=== PATIENT | male | born 1950 | race Caucasian/White ===

== ENCOUNTER 2017-09-26 09:31 | Inpatient (IN) | payer MEDICAID, OTHER ==
[~2017-09-26] VITALS: Ht 175.3 cm; Wt 72.1 kg
[~2017-09-26 09:31] MED LIST: *INS REG3 SQ; AMLO10TA2 PO; ASPI-1169 PO; BRIM5DRO EACHEYE; CARV3.122 PO; DOCU100C36 PO; DORZ10DR11 OP; FAMO20TA8 PO; NPH,100V2 SQ; OMEG500C PO; PRAV40TA3 PO
[2017-09-26 10:41] LABS: BASOPHILS % (AUTO) 0.3 % (0.0-2.0); EOSINOPHILS % (AUTO) 0.2 % (0.0-6.0); HEMATOCRIT 32 % (39-51); HEMOGLOBIN 10.8 g/dL (13.5-17.5); LYMPHOCYTES # (AUTO) 1.1 /CMM (0.8-4.8); LYMPHOCYTES % (AUTO) 8.2 % (20.0-44.0); MEAN CORPUSCULAR HEMOGLOBIN 33 PG (26.0-33.0); MEAN CORPUSCULAR HGB CONC 34 g/dl (31.0-36.0); MEAN CORPUSCULAR VOLUME 96 fL (80-96); MONOCYTES % (AUTO) 14.2 % (2.0-12.0); NEUTROPHILS # (AUTO) 10.7 /CMM (1.8-8.9); NEUTROPHILS % (AUTO) 77.1 % (43.0-81.0); PLATELET COUNT (AUTO) 239 /CMM (150-450); RDW COEFFICIENT OF VARIATION 12.9 (11.5-15.0); RED BLOOD CELL COUNT(AUTO) 3.32 MIL/uL (4.5-6.0); WHITE BLOOD COUNT (AUTO) 13.8 K/uL (4.3-11.0)
[2017-09-26 10:55] LABS: INR 1.12 (0.85-1.15)
[2017-09-26 11:00] LABS: TROPONIN I 0.085 ng/mL (0.00-0.056)
[2017-09-26 11:08] LABS: D-DIMER 0.67 mg/L(FEU (0.17-0.50)
[2017-09-26 11:11] LABS: BILIRUBIN,DIRECT 0.2 mg/dL (0.0-0.2); BILIRUBIN,TOTAL 0.7 mg/dL (0.2-1.0); CALCIUM, SERUM 8.7 mg/dL (8.5-10.1); CREATININE 2.6 mg/dL (0.6-1.3); POTASSIUM 3.8 mmol/L (3.5-5.1); TOTAL PROTEIN, SERUM 7.9 g/dL (6.4-8.2)
[2017-09-26] MEDS ORDERED: ASPIRIN 325 MG TABLET PO ONE (12:00)
[2017-09-26] MEDS ORDERED: MORPHINE SULFATE INJ 2 MG/ML DISP.SYRIN IV PRN ×2 (12:30→15:30)
[2017-09-26] MEDS ORDERED: FUROSEMIDE 40 MG/4 ML VIAL IV SCH (12:30)
[2017-09-26 15:06] VITALS: BP 146/71
[2017-09-26] MEDS ORDERED: ATOR40TA PO (15:26)
[2017-09-26] MEDS ORDERED: ALLO100T PO (15:26)
[2017-09-26] MEDS ORDERED: HYDR-4077 PO (15:26)
[2017-09-26] MEDS ORDERED: LOSA50TA21 PO (15:26)
[2017-09-26] MEDS ORDERED: MAGNESIUM HYDROXIDE 30 ML UDC PO PRN (15:30)
[2017-09-26] MEDS ORDERED: HYDROCODONE/APAP 5/325MG 1 EACH TABLET PO PRN (15:30)
[2017-09-26] MEDS ORDERED: DEXTROSE 50%-WATER 50 ML DISP.SYRIN IV PRN (15:30)
[2017-09-26] MEDS ORDERED: ACETAMINOPHEN 325 MG TABLET PO PRN (15:30)
[2017-09-26] MEDS ORDERED: MAG HYDROX/AL HYDROX/SIMETH 30 ML UDC PO PRN (15:30)
[2017-09-26] MEDS ORDERED: Z GUARD REMEDY 2 OZ OINT TP PRN (15:30)
[2017-09-26] MEDS ORDERED: ONDANSETRON HCL/PF 4 MG/2 ML VIAL IVP PRN (15:30)
[2017-09-26] MEDS: hydrALAZINE HCL 50 MG TABLET PO SCH ×2 (16:00→21:00)
[2017-09-26] MEDS: BLOOD SUGAR DIAGNOSTIC 1 EACH STRIP IN SCH ×2 (17:11→21:15)
[2017-09-26] MEDS ORDERED: FUROSEMIDE 20 MG/2 ML VIAL IV ONE (18:00)
[2017-09-26] MEDS: BRIMONIDINE TARTRATE OPHT SOLN 5 ML BOTTLE EACHEYE SCH (18:23)
[2017-09-26 18:27] VITALS: BP 154/64
[2017-09-26 18:37] VITALS: BP 146/71
[2017-09-26 20:00] VITALS: BP 129/65
[2017-09-26] MEDS: ATORVASTATIN 40 MG TABLET PO SCH (21:15)
[2017-09-26] MEDS: CARVEDILOL 3.125 MG TABLET PO SCH (21:15)
[2017-09-26] MEDS: INSULIN GLARGINE, 100 UNIT/ML CARTRIDGE SQ SCH (21:17)
[2017-09-26] MEDS: INSULIN REGULAR, HUMAN 100 UNIT/ML 3 ML VIAL SQ PRN (21:17)
[2017-09-26] MEDS: ZOLPIDEM TARTRATE 5 MG TABLET PO PRN (23:54)
[2017-09-27] VITALS: BP 117/56
[2017-09-27 04:00] VITALS: BP 125/61
[2017-09-27] MEDS: BLOOD SUGAR DIAGNOSTIC 1 EACH STRIP IN SCH ×4 (06:53→21:55)
[2017-09-27 06:55] LABS: BASOPHILS % (AUTO) 0.2 % (0.0-2.0); EOSINOPHILS % (AUTO) 1.2 % (0.0-6.0); HEMATOCRIT 33 % (39-51); HEMOGLOBIN 11.2 g/dL (13.5-17.5); LYMPHOCYTES # (AUTO) 1.1 /CMM (0.8-4.8); MEAN CORPUSCULAR HEMOGLOBIN 34 PG (26.0-33.0); MEAN CORPUSCULAR HGB CONC 34 g/dl (31.0-36.0); MEAN CORPUSCULAR VOLUME 98 fL (80-96); MONOCYTES % (AUTO) 14.8 % (2.0-12.0); NEUTROPHILS # (AUTO) 10.1 /CMM (1.8-8.9); NEUTROPHILS % (AUTO) 75.8 % (43.0-81.0); PLATELET COUNT (AUTO) 222 /CMM (150-450); RDW COEFFICIENT OF VARIATION 13.6 (11.5-15.0); WHITE BLOOD COUNT (AUTO) 13.3 K/uL (4.3-11.0)
[2017-09-27 07:03] LABS: CREATININE 2.7 mg/dL (0.6-1.3); MAGNESIUM 2.1 mg/dL (1.8-2.4); PHOSPHORUS 4.3 mg/dL (2.5-4.9); POTASSIUM 3.7 mmol/L (3.5-5.1)
[2017-09-27 08:00] VITALS: BP_SYST 113; BP_SYST 131; BP_DIAS 62
[2017-09-27] MEDS: ALLOPURINOL 100 MG TABLET PO SCH (08:26)
[2017-09-27] MEDS: ASPIRIN 325 MG TABLET PO SCH (08:26)
[2017-09-27] MEDS: PANTOPRAZOLE 40 MG VIAL IV SCH (08:26)
[2017-09-27] MEDS: AMLODIPINE BESYLATE 10 MG TABLET PO SCH (08:27)
[2017-09-27] MEDS: BRIMONIDINE TARTRATE OPHT SOLN 5 ML BOTTLE EACHEYE SCH ×2 (08:27→17:06)
[2017-09-27] MEDS: hydrALAZINE HCL 50 MG TABLET PO SCH ×3 (09:00→21:00)
[2017-09-27] MEDS: CARVEDILOL 3.125 MG TABLET PO SCH ×2 (09:00→21:00)
[2017-09-27] MEDS: LOSARTAN POTASSIUM 50 MG TABLET PO SCH (09:27)
[2017-09-27] MEDS: INSULIN REGULAR, HUMAN 100 UNIT/ML 3 ML VIAL SQ PRN ×3 (11:44→21:57)
[2017-09-27 12:00] VITALS: BP 124/66
[2017-09-27 16:00] VITALS: BP 124/60
[2017-09-27 17:39] LABS: APPEARANCE,URINE SL CLOUDY (CLEAR); BILIRUBIN,URINE NEGATIVE (NEGATIVE); BLOOD, URINE NEGATIVE Ery/uL (NEGATIVE); COLOR,URINE YELLOW (YELLOW); KETONES,URINE NEGATIVE (NEGATIVE); LEUKOCYTE ESTERASE ,URINE NEGATIVE (NEGATIVE); NITRITE, URINE NEGATIVE (NEGATIVE); PH,URINE 5.5 (5.0-8.0); PROTEIN,URINE 2+ mg/dl (NEGATIVE); UGLUCOSE NEGATIVE (NEGATIVE); UROBILINOGEN,URINE 0.2 EU/dL (0.2)
[2017-09-27 18:02] LABS: BACTERIA,URINE Moderate /HPF (None Seen); HYALINE CASTS, URINE Few /LPF (None Seen); RBC,URINE 0-2 /HPF (0-2); SQUAMOUS EPITHELIAL CELL,UR Few /HPF (None Seen); WBC,URINE 0-2 /HPF (0-3)
[2017-09-27 18:03] LABS: URINE AMORPHOUS URATE Moderate /HPF (None Seen)
[2017-09-27 18:20] LABS: CREATININE, URINE 141.7 MG/DL (30.0-125.0); URINE TOTAL PROTEIN 145.1 mg/dL (0-11.9)
[2017-09-27 18:31] LABS: EOSINOPHIL,URINE None Seen
[2017-09-27 20:00] VITALS: BP 127/58
[2017-09-27] MEDS: ATORVASTATIN 40 MG TABLET PO SCH (21:53)
[2017-09-27] MEDS: INSULIN GLARGINE, 100 UNIT/ML CARTRIDGE SQ SCH (21:56)
[2017-09-27] MEDS: ZOLPIDEM TARTRATE 5 MG TABLET PO PRN (22:17)
[2017-09-28] VITALS: BP 133/59
[2017-09-28 04:33] VITALS: BP 140/61
[2017-09-28 06:20] LABS: BASOPHILS % (AUTO) 0.3 % (0.0-2.0); EOSINOPHILS % (AUTO) 3.6 % (0.0-6.0); HEMATOCRIT 33 % (39-51); LYMPHOCYTES # (AUTO) 1.4 /CMM (0.8-4.8); LYMPHOCYTES % (AUTO) 12.7 % (20.0-44.0); MEAN CORPUSCULAR HEMOGLOBIN 33 PG (26.0-33.0); MEAN CORPUSCULAR HGB CONC 33 g/dl (31.0-36.0); MEAN CORPUSCULAR VOLUME 99 fL (80-96); MONOCYTES # (AUTO) 1.3 /CMM (0.1-1.30); MONOCYTES % (AUTO) 11.4 % (2.0-12.0); PLATELET COUNT (AUTO) 239 /CMM (150-450); RDW COEFFICIENT OF VARIATION 13.6 (11.5-15.0); RED BLOOD CELL COUNT(AUTO) 3.33 MIL/uL (4.5-6.0); WHITE BLOOD COUNT (AUTO) 11.1 K/uL (4.3-11.0)
[2017-09-28 06:23] LABS: ALBUMIN 2.6 g/dL (3.4-5.0); BILIRUBIN,TOTAL 0.5 mg/dL (0.2-1.0); CALCIUM, SERUM 8.4 mg/dL (8.5-10.1); MAGNESIUM 2.2 mg/dL (1.8-2.4); PHOSPHORUS 4.9 mg/dL (2.5-4.9); TOTAL PROTEIN, SERUM 7.5 g/dL (6.4-8.2)
[2017-09-28] MEDS: BLOOD SUGAR DIAGNOSTIC 1 EACH STRIP IN SCH ×3 (06:30→17:30)
[2017-09-28 08:00] VITALS: BP 142/72
[2017-09-28] MEDS: ASPIRIN 325 MG TABLET PO SCH (08:21)
[2017-09-28] MEDS: ALLOPURINOL 100 MG TABLET PO SCH (08:21)
[2017-09-28] MEDS: PANTOPRAZOLE 40 MG VIAL IV SCH (08:21)
[2017-09-28] MEDS: LOSARTAN POTASSIUM 50 MG TABLET PO SCH (08:23)
[2017-09-28] MEDS: hydrALAZINE HCL 50 MG TABLET PO SCH ×2 (08:24→13:00)
[2017-09-28] MEDS: CARVEDILOL 3.125 MG TABLET PO SCH (08:24)
[2017-09-28] MEDS: AMLODIPINE BESYLATE 10 MG TABLET PO SCH (09:00)
[2017-09-28] MEDS: BRIMONIDINE TARTRATE OPHT SOLN 5 ML BOTTLE EACHEYE SCH ×2 (09:02→17:00)
[2017-09-28] MEDS ORDERED: FUROSEMIDE 20 MG TABLET PO SCH (11:00)
[2017-09-28 12:00] VITALS: BP 133/59
[2017-09-28] MEDS: INSULIN REGULAR, HUMAN 100 UNIT/ML 3 ML VIAL SQ PRN (12:28)
[2017-09-28 16:00] VITALS: BP 131/65
[2017-09-28 20:00] VITALS: BP 138/70
[2017-09-30 08:07] LABS: *SPE A/G RATIO 0.7 (0.7-1.7); *SPE ALBUMIN 2.8 g/dL (2.9-4.4); *SPE ALPHA-1-GLOBULIN 0.4 g/dL (0.0-0.4); *SPE ALPHA-2-GLOBULIN 0.9 g/dL (0.4-1.0); *SPE BETA GLOBULIN 0.7 g/dL (0.7-1.3); *SPE GLOBULIN, TOTAL 3.8 g/dL (2.2-3.9); *SPE M-SPIKE Not Observed g/dL (Not Observed); *SPEGAMMA GLOBULIN 1.7 g/dL (0.4-1.8)
[2017-10-01 12:17] LABS: CALCITRIOL VIT D,1, 25 DIHYDRO 25.4 pg/mL (19.9-79.3)
[2017-10-04 05:16] LABS: PTH, INTACT 78 pg/mL (15-65)
== END 2017-09-28 20:30 | disposition home or self-care (01) | DRG 194 ==
LOC: ER 09:35 → TELE 11:49
PROVIDERS: ADMIT Hospitalist; ATTEND Hospitalist
DX: I13.0 Hypertensive heart and chronic kidney disease with heart failure and stage 1 through stage 4 chronic kidney disease, or unspecified chronic kidney disease (principal); I21.4 Non-ST elevation (NSTEMI) myocardial infarction; N17.0 Acute kidney failure with tubular necrosis; N18.9 Chronic kidney disease, unspecified; D63.8 Anemia in other chronic diseases classified elsewhere; E44.1 Mild protein-calorie malnutrition; E78.5 Hyperlipidemia, unspecified; E88.09 Other disorders of plasma-protein metabolism, not elsewhere classified; I25.10 Atherosclerotic heart disease of native coronary artery without angina pectoris; E11.22 Type 2 diabetes mellitus with diabetic chronic kidney disease; D72.829 Elevated white blood cell count, unspecified; E11.65 Type 2 diabetes mellitus with hyperglycemia; E11.51 Type 2 diabetes mellitus with diabetic peripheral angiopathy without gangrene; Z86.73 Personal history of transient ischemic attack (TIA), and cerebral infarction without residual deficits; Z95.1 Presence of aortocoronary bypass graft; H91.93 Unspecified hearing loss, bilateral; Z89.511 Acquired absence of right leg below knee; H54.61 Unqualified visual loss, right eye, normal vision left eye; Z68.23 Body mass index [BMI] 23.0-23.9, adult; I42.9 Cardiomyopathy, unspecified; H40.9 Unspecified glaucoma; Z79.4 Long term (current) use of insulin; E11.36 Type 2 diabetes mellitus with diabetic cataract; I50.43 Acute on chronic combined systolic (congestive) and diastolic (congestive) heart failure
CPT/HCPCS: 36415; 71045-TC; 78582; 80048-TC; 80053-TC; 80061-TC; 80076-TC; 81000-TC; 82306; 82550-TC; 82570-TC; 82652; 82962-TC; 83735-TC; 83880; 83970; 84100-TC; 84155; 84155-TC; 84165; 84300-TC; 84484-TC; 85025-TC; 85378-TC; 85730-TC; 87081-TC; 87086-TC; 93307-TC; A4606; A6402; A9540; A9567; C9113; J1815; J1940; Z7610

== ENCOUNTER 2019-01-16 10:46 | Emergency (ER) | payer MEDICAID, OTHER ==
[~2019-01-16] VITALS: Ht 167.6 cm; Wt 71.7 kg
[~2019-01-16 10:46] MED LIST changes: +ALLO100T PO; -AMLO10TA2 PO; +AMLO10TA7 PO; +ATOR40TA PO; -DOCU100C36 PO; -DORZ10DR11 OP; -FAMO20TA8 PO; +HYDR-4077 PO; +LOSA50TA39 PO; -OMEG500C PO; -PRAV40TA3 PO
--- NOTE | 2019-01-16 10:59 | NUR ---
PT BIB SON FROM HOME C/O VOMITTING SINCE LAST NIGHT S/P EATING DINNER. PT IS AAOX3, NOT IN RESPIRATORY DISTRESS, V/S STABLE, KEPT RESTED AND COMFORTABLE, WILL CONTINUE TO MONITOR.
[2019-01-16] MEDS ORDERED: SACU1TAB4 PO (11:15)
[2019-01-16] MEDS ORDERED: RANO500T5 PO (11:15)
[2019-01-16] MEDS ORDERED: GABA-532 PO (11:15)
[2019-01-16] MEDS ORDERED: FAMO20TA8 PO (11:15)
[2019-01-16] MEDS ORDERED: DOCU-141 PO (11:15)
--- NOTE | 2019-01-16 11:18 | NUR ---
AT BEDSIDE FOR EVAL.
[2019-01-16] MEDS ORDERED: ONDANSETRON HCL/PF 4 MG/2 ML VIAL ONE (11:39)
[2019-01-16 11:44] LABS: LYMPHOCYTES # (AUTO) 0.5 /CMM (0.8-4.8); MONOCYTES # (AUTO) 0.9 /CMM (0.1-1.30); NEUTROPHILS # (AUTO) 6.8 /CMM (1.8-8.9)
--- NOTE | 2019-01-16 11:45 | NUR ---
DISTRESSER AT BEDSIDE FOR XRAY
[2019-01-16 11:46] LABS: CALCIUM, SERUM 8.2 mg/dL (8.5-10.1); CREATININE 3.4 mg/dL (0.6-1.3); POTASSIUM 5.6 mmol/L (3.5-5.1)
[2019-01-16 11:49] LABS: BASOPHILS % (AUTO) 0.5 % (0.0-2.0); EOSINOPHILS % (AUTO) 0.3 % (0.0-6.0); HEMATOCRIT 32 % (39-51); HEMOGLOBIN 10.6 g/dL (13.5-17.5); LYMPHOCYTES % (AUTO) 6.4 % (20.0-44.0); MEAN CORPUSCULAR HGB CONC 34 g/dl (31.0-36.0); MEAN CORPUSCULAR VOLUME 100 fL (80-96); MONOCYTES % (AUTO) 10.4 % (2.0-12.0); NEUTROPHILS % (AUTO) 82.4 % (43.0-81.0); PLATELET COUNT (AUTO) 208 /CMM (150-450); RED BLOOD CELL COUNT(AUTO) 3.16 MIL/uL (4.5-6.0); WHITE BLOOD COUNT (AUTO) 8.2 K/uL (4.3-11.0)
[2019-01-16 11:52] LABS: BILIRUBIN,DIRECT 0.2 mg/dL (0.0-0.2); BILIRUBIN,TOTAL 0.5 mg/dL (0.2-1.0); TOTAL PROTEIN, SERUM 7.4 g/dL (6.4-8.2)
[2019-01-16] MEDS: ONDANSETRON HCL/PF 4 MG/2 ML VIAL IVP ONE (11:53)
[2019-01-16] MEDS: IV NS 0.9% 1,000 ML BAG IV ONE (11:53)
--- NOTE | 2019-01-16 13:04 | NUR ---
IV removed. Catheter intact and site benign. Pressure and 4x4 applied to site. No bleeding noted. Patient discharged to home in stable condition. Written and verbal after care instructions given. Patient verbalizes understanding of instruction.
[2019-01-16 13:12] VITALS: BP 110/65
== END 2019-01-16 13:13 | disposition home or self-care (01) ==
LOC: ER 10:46
DX: R11.2 Nausea with vomiting, unspecified (principal); I10 Essential (primary) hypertension; E78.00 Pure hypercholesterolemia, unspecified; E11.9 Type 2 diabetes mellitus without complications; Z86.73 Personal history of transient ischemic attack (TIA), and cerebral infarction without residual deficits; Z95.818 Presence of other cardiac implants and grafts; Z79.899 Other long term (current) drug therapy; Z79.82 Long term (current) use of aspirin; Z79.4 Long term (current) use of insulin
CPT/HCPCS: 36415; 74022; 80048; 80076; 83690; 85025; 96361; 96374; 99284; J2405; J7030

== ENCOUNTER 2019-02-17 16:55 | Emergency (ER) | payer MEDICAID, OTHER ==
[~2019-02-17] VITALS: Ht 167.6 cm; Wt 74.0 kg
[~2019-02-17 16:55] MED LIST changes: -BRIM5DRO EACHEYE; +DOCU-141 PO; +FAMO20TA8 PO; +GABA-532 PO; -LOSA50TA39 PO; +RANO500T5 PO; +SACU1TAB4 PO
[2019-02-17 17:04] VITALS: BP 148/62
[2019-02-17] MEDS ORDERED: CEPHALEXIN MONOHYDRATE 500 MG CAPSULE PO ONE ×2 (17:30→18:05)
--- NOTE | 2019-02-17 18:33 | NUR ---
Patient discharged to home in stable condition. Written and verbal after care instructions given. Patient verbalizes understanding of instruction. IV removed. Catheter intact and site benign. Pressure and 4x4 applied to site. No bleeding noted.
== END 2019-02-17 18:49 | disposition home or self-care (01) ==
LOC: ER 16:55
DX: L97.529 Non-pressure chronic ulcer of other part of left foot with unspecified severity (principal); R60.0 Localized edema; I10 Essential (primary) hypertension; I25.10 Atherosclerotic heart disease of native coronary artery without angina pectoris; E78.00 Pure hypercholesterolemia, unspecified; E11.9 Type 2 diabetes mellitus without complications; Z86.73 Personal history of transient ischemic attack (TIA), and cerebral infarction without residual deficits; Z95.818 Presence of other cardiac implants and grafts; Z98.890 Other specified postprocedural states; Z89.511 Acquired absence of right leg below knee; Z79.899 Other long term (current) drug therapy; Z79.82 Long term (current) use of aspirin; Z79.4 Long term (current) use of insulin
CPT/HCPCS: 73630; 99283; A6403

== ENCOUNTER 2019-05-14 13:05 | Emergency (ER) | payer OTHER, MEDICAID ==
[~2019-05-14] VITALS: Ht 165.1 cm; Wt 70.8 kg
--- NOTE | 2019-05-14 13:10 | NUR ---
NEUROPATHIC PAIN TO R STUMP. NO RELIEF FROM TYLENOL. KEPT COMFORTABLE.
[2019-05-14] MEDS ORDERED: oxyCODONE/APAP (5/325 MG) 1 UDTAB TABLET ONE (13:50)
--- NOTE | 2019-05-14 13:53 | NUR ---
Patient discharged to home in stable condition. Written and verbal after care instructions given. Patient verbalizes understanding of instruction.
[2019-05-14 13:54] VITALS: BP 156/89
[2019-05-14] MEDS ORDERED: oxyCODONE/APAP (5/325 MG) 1 UDTAB TABLET PO ONE (14:00)
== END 2019-05-14 13:54 | disposition home or self-care (01) ==
LOC: ER 13:11
DX: M79.604 Pain in right leg (principal); E78.00 Pure hypercholesterolemia, unspecified; I10 Essential (primary) hypertension; E11.9 Type 2 diabetes mellitus without complications; Z86.73 Personal history of transient ischemic attack (TIA), and cerebral infarction without residual deficits; Z98.890 Other specified postprocedural states; Z79.82 Long term (current) use of aspirin; Z79.4 Long term (current) use of insulin; Z79.899 Other long term (current) drug therapy; Z89.511 Acquired absence of right leg below knee; Z95.1 Presence of aortocoronary bypass graft